=== PATIENT | male | born 1995 ===

== ENCOUNTER 2019-10-26 10:50 | Emergency (ER) | payer SELFPAY ==
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
--- NOTE | 2019-10-26 14:22 | XRay Report ---
HISTORY:swelling and pain to right 2nd 3rd PIP COMPARISON: None. TECHNIQUE: AP lateral and obliques views were obtained FINDINGS: Bones: No fracture or dislocation. Joint spaces: Maintained. Soft tissues: No significant abnormality. Additional findings: None. IMPRESSION: 1. No significant abnormality. Signer Name: Mick Estrada MD Signed: 10/26/2019 2:17 PM Workstation Name: [id number]
[2019-10-26] MEDS ORDERED: SULFAMETHOXAZOLE/TRIMETHOPRIM 800/160MG DS TAB PO ONE (20:13)
[2019-10-26] MEDS ORDERED: LIDOCAINE-MPF (1%) 10 MG/1 ML VIAL 5 ML INFILTRATI ONE (20:13)
[2019-10-26] MEDS ORDERED: IBUPROFEN 600 MG TAB PO ONE (20:13)
[2019-10-26] MEDS ORDERED: ACETAMINOPHEN W/CODEINE 300-30 MG TAB PO ONE (20:13)
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
[2019-10-26 22:01] VITALS: BP 116/80
== END 2019-10-26 22:02 | disposition home or self-care (01) ==
LOC: ED 10:50
DX: S63.92XA Sprain of unspecified part of left wrist and hand, initial encounter (principal); S60.222A Contusion of left hand, initial encounter; S60.00XA Contusion of unspecified finger without damage to nail, initial encounter; L03.114 Cellulitis of left upper limb; L02.512 Cutaneous abscess of left hand; W22.8XXA Striking against or struck by other objects, initial encounter; Y93.89 Activity, other specified; Y92.89 Other specified places as the place of occurrence of the external cause; Y99.8 Other external cause status
CPT/HCPCS: 99283

== ENCOUNTER 2019-10-28 09:24 | Emergency (ER) | payer SELFPAY ==
[2019-10-28 09:34] VITALS: BP 118/78
--- NOTE | 2019-10-28 10:58 | Emergency Department Report ---
ED Recheck HPI - General Chief Complaint: Wound/Laceration Stated Complaint: RT HAND GAUZED REMOVED Time Seen by Provider: 10/28/19 10:23 Source: patient Mode of arrival: Ambulatory Limitations: No Limitations - History of Present Illness Initial Comments: This is a 24-year-old male that presents to the emergency room for packing removal of right posterior hand. Patient states he had an I&D 2 days ago and instructed to follow-up for reevaluation of wound and possible packing removal. He denies new symptoms. Reports minimal drainage. Denies numbness or tingling, fever, weakness, or bruising. MD Complaint: wound re-check Onset/Timin -: days(s) Initial Visit For: abscess Returns Today for: wound recheck Symptoms Since Prior Visit: no new symptoms Associated Symptoms: none - Related Data Previous Rx's Medication Instructions Recorded Last Taken Type Acetaminophen/Codeine [Tylenol 1 tab PO Q6H PRN #12 tab 10/26/19 Unknown Rx /Codeine # 3 tab] Ibuprofen [Motrin] 800 mg PO Q8HR PRN #24 tablet 10/26/19 Unknown Rx Sulfamethoxazole/Trimethoprim 1 each PO Q12H #20 tablet 10/26/19 Unknown Rx [Bactrim DS TAB] Allergies Allergy/AdvReac Type Severity Reaction Status Date / Time No Known Allergies Allergy Unverified 10/26/19 11:20 ED Review of Systems ROS: Stated complaint: RT HAND GAUZED REMOVED Other details as noted in HPI Constitutional: denies: chills, fever Respiratory: denies: cough, shortness of breath, wheezing Cardiovascular: denies: chest pain, palpitations Gastrointestinal: denies: abdominal pain, nausea, diarrhea Skin: lesions (packing removal from wound of right posterior hand). denies: rash Neurological: denies: headache, weakness, paresthesias Psychiatric: denies: anxiety, depression ED Past Medical Hx - Past Medical History Previous Medical History?: No - Surgical History Additional Surgical History: oral surgery - Social History Smoking Status: Never Smoker Substance Use Type: Alcohol, Marijuana - Medications Home Medications: Home Medications Medication Instructions Recorded Confirmed Last Taken Type Acetaminophen/Codeine [Tylenol 1 tab PO Q6H PRN #12 tab 10/26/19 Unknown Rx /Codeine # 3 tab] Ibuprofen [Motrin] 800 mg PO Q8HR PRN #24 tablet 10/26/19 Unknown Rx Sulfamethoxazole/Trimethoprim 1 each PO Q12H #20 tablet 10/26/19 Unknown Rx [Bactrim DS TAB] ED Physical Exam - General Limitations: No Limitations General appearance: alert, in no apparent distress - Respiratory Respiratory exam: Present: normal lung sounds bilaterally. Absent: respiratory distress - Cardiovascular Cardiovascular Exam: Present: regular rate, normal rhythm. Absent: systolic murmur, diastolic murmur, rubs, gallop - Neurological Exam Neurological exam: Present: alert, oriented X3 - Psychiatric Psychiatric exam: Present: normal affect, normal mood - Skin Skin exam: Present: warm, dry, normal color, other (packing into the wound on right dorsal hand with 4 x 4 gauze stressing. No erythema, swelling, no d drainage, or tenderness to palpation). Absent: intact, rash, cyanosis, diaphoretic, erythema, urticaria, vesicles, petechiae, pallor, abrasion, ecchymosis ED Course Vital Signs 10/28/19 10/28/19 09:32 11:19 Temperature 97.3 F L Pulse Rate 120 H 84 Respiratory 20 16 Rate Blood Pressure 118/78 O2 Sat by Pulse 100 Oximetry ED Recheck MDM - Differential Diagnosis Wound Recheck - Medical Decision Making This is a 24 y.o. male that presents to the ER for packing removal. I&D of right dorsal hand 2 days ago. Denies new symptoms. No acute signs of distress noted. Packing removed with sterile forceps, irrigated with 10 mL of normal saline. A nonadherent gauze, 4 x 4 gauze, and surgical tape applied. Patient given wound care instructions. Follow-up with primary care. Discharged home stable. Critical care attestation.: If time is entered above; I have spent that time in minutes in the direct care of this critically ill patient, excluding procedure time. ED Disposition Clinical Impression: Encounter for abscess packing removal Disposition: [id number] TO HOME OR SELFCARE Is pt being admited?: No Condition: Stable Instructions: Acute Wound Care (ED) Additional Instructions: Si le pusieron un vendaje, qutelo y cmbielo jose c vez al da o segn las indicaciones. Si el vendaje se moja o ensucia, reemplcelo lo antes posible con un vendaje nuevo. Use un charisse limpio para secar suavemente la herida. No se jeremiah en jose c baera ni empape la herida hasta que se encuentre con mackenzie mdico de atencin primaria. [place] duchas o baos de esponja en mackenzie lugar. No nades No te rasques, frotes, frotes ni te rasques la herida. Revise mackenzie herida diariamente para detectar signos de infeccin demetrio fiebre, enrojecimiento, hinchazn, aumento del dolor, pus o drenaje de la herida con olor a palmadita. Kathryn un seguimiento con el mdico de atencin primaria de la lista que se proporciona a continuacin. If a bandage was put on, remove and change it once a day or as directed. If the bandage gets wet or dirty, replace it as soon as possible with a new bandage. Use a clean cloth to gently pat the wound dry. Don't bathe in a tub or soak your wound until your primary care doctor. Take showers or sponge baths instead. Don't swim. Don't scratch, rub, scrub, or pick your wound. Check your wound daily for the signs of infection such as fever, redness, swelling, increasing pain, pus or pat smelling drainage from the wound. Follow-up with the primary care doctor from the list provided below. Referrals: [facility] [place] [Outside] - 3-5 Days [facility] [Outside] - 3-5 Days [facility] [Outside] - 3-5 Days Forms: Work/School Release Form(ED) Time of Disposition: 11:10 Print Language: FAROESE
== END 2019-10-28 11:20 | disposition home or self-care (01) ==
LOC: ED 09:24
DX: L02.511 Cutaneous abscess of right hand (principal); F10.10 Alcohol abuse, uncomplicated; F12.10 Cannabis abuse, uncomplicated; Z98.890 Other specified postprocedural states; Z79.899 Other long term (current) drug therapy

== ENCOUNTER 2021-02-15 14:26 | Emergency (ER) | payer SELFPAY ==
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
[2021-02-15 15:37] LABS: Basophils % (Auto) 0.5 % (0.0-1.8); Eosinophils # (Auto) 0.3 K/mm3 (0.0-0.4); Eosinophils % (Auto) 4.4 % (0.0-4.3); Hematocrit 43.4 % (35.5-45.6); Lymphocytes # (Auto) 2.3 K/mm3 (1.2-5.4); Lymphocytes % (Auto) 34.1 % (13.4-35.0); Mean Corpuscular HGB Conc 35 % (32-34); Mean Corpuscular Volume 97 fl (84-94); Monocytes # (Auto) 0.8 K/mm3 (0.0-0.8); Platelet Count 215 K/mm3 (140-440); Red Blood Count 4.46 M/mm3 (3.65-5.03); Red Cell Distribution Width 14.5 % (13.2-15.2)
[2021-02-15 16:07] LABS: Alanine Aminotransferase 22 units/L (7-56); Albumin 4.2 g/dL (3.9-5); BUN/Creatinine Ratio 15; Blood Urea Nitrogen 12 mg/dL (9-20); Calcium 9.4 mg/dL (8.4-10.2); Hemolysis Index 19
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
[2021-02-15] MEDS ORDERED: HYDROcodone/ACETAMINOPHEN 7.5-325MG TAB PO ONE (17:05)
[2021-02-15 17:12] LABS: Bilirubin,Urine NEG (Negative); Blood,Urine NEG (Negative); Color,Urine Yellow (Yellow); Protein,Urine <15 mg/dL mg/dL (Negative); Urobilinogen,Urine < 2.0 mg/dL (<2.0)
[2021-02-15 17:17] LABS: Mucus,Urine FEW /HPF; WBC,Urine < 1.0 /HPF (0.0-6.0)
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
--- NOTE | 2021-02-15 17:58 | XRay Report ---
LEFT HIP 2 VIEWS INDICATION / CLINICAL INFORMATION: left hip pain COMPARISON: None available. FINDINGS: BONES and JOINT(S): No acute fracture or subluxation. No significant arthritis. SOFT TISSUES: No significant abnormality. ADDITIONAL FINDINGS: None. IMPRESSION: 1. No acute findings. Signer Name: Claudio Gibbons MD Signed: 02/15/2021 5:53 PM Workstation Name: [id number]
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
[2021-02-15 21:47] VITALS: BP 129/77
== END 2021-02-15 21:55 | disposition home or self-care (01) ==
LOC: ED 14:26
DX: S42.022A Displaced fracture of shaft of left clavicle, initial encounter for closed fracture (principal); S30.1XXA Contusion of abdominal wall, initial encounter; M25.552 Pain in left hip; F12.90 Cannabis use, unspecified, uncomplicated; Z98.890 Other specified postprocedural states; Z79.899 Other long term (current) drug therapy; V19.9XXA Pedal cyclist (driver) (passenger) injured in unspecified traffic accident, initial encounter; Y92.410 Unspecified street and highway as the place of occurrence of the external cause; Y93.89 Activity, other specified; Y99.8 Other external cause status
CPT/HCPCS: 29105; 36415; 73000; 73030; 73502; 74177; 80053; 81001; 83690; 85025; 99284; Q9967

== ENCOUNTER 2021-05-29 21:42 | Emergency (ER) | payer SELFPAY ==
--- NOTE | 2021-05-29 22:27 | XRay Report ---
CHEST 2 VIEWS INDICATION: chest pain. COMPARISON: None FINDINGS: SUPPORT DEVICES: None. HEART: Within normal limits. LUNGS/PLEURA: No acute air space or interstitial disease. No pneumothorax. ADDITIONAL FINDINGS: None. IMPRESSION: 1. No acute findings. Signer Name: Terrell Knight MD Signed: 05/29/2021 10:23 PM Workstation Name: [id number]
[2021-05-29 23:43] VITALS: BP 131/86
[2021-05-30] LABS: Basophils % (Auto) 0.7 % (0.0-1.8); Eosinophils # (Auto) 0.2 K/mm3 (0.0-0.4); Eosinophils % (Auto) 3.6 % (0.0-4.3); Lymphocytes # (Auto) 2.4 K/mm3 (1.2-5.4); Lymphocytes % (Auto) 38.1 % (13.4-35.0); Mean Corpuscular HGB Conc 35 % (32-34); Mean Corpuscular Volume 96 fl (84-94); Monocytes # (Auto) 0.9 K/mm3 (0.0-0.8); Monocytes % (Auto) 13.8 % (0.0-7.3); Platelet Count 254 K/mm3 (140-440); Red Cell Distribution Width 14.9 % (13.2-15.2)
[2021-05-30 00:14] LABS: Alanine Aminotransferase 29 units/L (7-56); Albumin 5.2 g/dL (3.9-5); Blood Urea Nitrogen 8 mg/dL (9-20); Calcium 10.2 mg/dL (8.4-10.2); Hemolysis Index 8
[2021-05-30 00:16] LABS: BUN/Creatinine Ratio 11
--- NOTE | 2021-05-31 09:14 | Electrocardiograph Report ---
[facility] Test Date: 2021-05-29 Test Time: 21:50:07 Pat Name: NAHEED YEH Department: Room: Gender: M Business Project Manager: JORDAN : 1995 Requested By: JACKELIN DILLON III Order Number: [id number] Reading MD: Vj Spain Measurements Intervals [place] Rate: 119 P: 67 OK: 124 QRS: 93 QRSD: 87 T: 21 QT: 322 QTc: 452 Interpretive Statements Sinus tachycardia No previous ECG available for comparison Electronically Signed On 05-31-2021 9:14:15 EDT by Vj Spain
== END 2021-05-30 03:39 | disposition home or self-care (01) ==
LOC: ED 21:42
DX: F41.9 Anxiety disorder, unspecified (principal); Z53.21 Procedure and treatment not carried out due to patient leaving prior to being seen by health care provider
CPT/HCPCS: 36415; 71046; 80053; 84484; 85025; 93005

== ENCOUNTER 2021-12-30 04:30 | Emergency (ER) | payer SELFPAY ==
[2021-12-30] MEDS ORDERED: LORazepam 2 MG/ML VIAL IM ONE (04:45)
[2021-12-30] MEDS ORDERED: HALOPERIDOL LACTATE 5 MG/1 ML INJ IM ONE (04:45)
[2021-12-30] MEDS ORDERED: LORazepam 2 MG/ML VIAL ONE (04:58)
[2021-12-30] MEDS ORDERED: HALOPERIDOL LACTATE 5 MG/1 ML INJ ONE (04:58)
[2021-12-30] MEDS ORDERED: SODIUM CHLORIDE 0.9% 1000 ML 1,000 ML IV ONE (05:03)
[2021-12-30 05:49] LABS: Basophils % (Auto) 0.6 % (0.0-1.8); Eosinophils # (Auto) 0.1 K/mm3 (0.0-0.4); Eosinophils % (Auto) 1.3 % (0.0-4.3); Hematocrit 44.4 % (35.5-45.6); Hemoglobin 14.8 gm/dl (11.8-15.2); Lymphocytes # (Auto) 1.6 K/mm3 (1.2-5.4); Lymphocytes % (Auto) 20.6 % (13.4-35.0); Mean Corpuscular HGB Conc 33 % (32-34); Mean Corpuscular Volume 95 fl (84-94); Monocytes # (Auto) 0.7 K/mm3 (0.0-0.8); Monocytes % (Auto) 8.6 % (0.0-7.3); Platelet Count 225 K/mm3 (140-440); Red Blood Count 4.68 M/mm3 (3.65-5.03); Red Cell Distribution Width 13.8 % (13.2-15.2)
[2021-12-30 06:13] LABS: Alanine Aminotransferase 40 units/L (7-56); Albumin 4.6 g/dL (3.9-5); BUN/Creatinine Ratio 13; Blood Urea Nitrogen 12 mg/dL (9-20); Calcium 8.8 mg/dL (8.4-10.2); Hemolysis Index 8
--- NOTE | 2021-12-30 06:19 | XRay Report ---
CHEST 1 VIEW 12/30/2021 5:36 AM INDICATION / CLINICAL INFORMATION: Medical Clearance Psych. COMPARISON: 05/29/2021. FINDINGS: SUPPORT DEVICES: None. HEART / MEDIASTINUM: No significant abnormality. LUNGS / PLEURA: No significant pulmonary or pleural abnormality. No pneumothorax. ADDITIONAL FINDINGS: Healed left clavicle fracture. IMPRESSION: No acute abnormality. Signer Name: Patrice Hsieh MD Signed: 12/30/2021 6:14 AM Workstation Name: [id number]
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
[2021-12-30 10:10] VITALS: BP 137/94
== END 2021-12-30 10:09 | disposition home or self-care (01) ==
LOC: ED 04:30
DX: F15.90 Other stimulant use, unspecified, uncomplicated (principal); R51.9 Headache, unspecified; R41.0 Disorientation, unspecified
CPT/HCPCS: 36415; 71045; 80053; 82550; 84484; 85025; 96360; 96372; 99285; J1630; J2060; J7030; 80320; 99284; Q0162; G0480

== ENCOUNTER 2022-01-01 22:21 | Emergency (ER) | payer SELFPAY ==
[2022-01-01] MEDS ORDERED: diphenhydrAMINE 25 MG/10 ML ORAL LIQUID PO ONE (22:43)
[2022-01-01] MEDS ORDERED: LIDOCAINE VISCOUS 2% 15 ML ORAL LIQD MM ONE (22:43)
[2022-01-01] MEDS ORDERED: ALUM-MAG HYDROXIDE-SIMETHICONE 200-200-20MG/5ML ORAL LIQD 30 ML PO STA (22:43)
[2022-01-01 23:40] LABS: Basophils % (Auto) 0.6 % (0.0-1.8); Eosinophils # (Auto) 0.2 K/mm3 (0.0-0.4); Eosinophils % (Auto) 2.6 % (0.0-4.3); Hematocrit 45.8 % (35.5-45.6); Lymphocytes # (Auto) 2.5 K/mm3 (1.2-5.4); Lymphocytes % (Auto) 36.6 % (13.4-35.0); Mean Corpuscular HGB Conc 33 % (32-34); Mean Corpuscular Volume 97 fl (84-94); Monocytes # (Auto) 0.7 K/mm3 (0.0-0.8); Monocytes % (Auto) 10.3 % (0.0-7.3); Platelet Count 227 K/mm3 (140-440); Red Blood Count 4.71 M/mm3 (3.65-5.03)
[2022-01-01 23:45] VITALS: BP 131/67
--- NOTE | 2022-01-01 23:45 | XRay Report ---
CHEST 2 VIEWS INDICATION: Chest Pain. COMPARISON: 12/30/2021 FINDINGS: Support devices: None. Heart: Within normal limits. Lungs/Pleura: No acute air space or interstitial disease. No significant pleural effusion. Old left seventh rib fracture. IMPRESSION: No acute findings. Signer Name: Patrice Hsieh MD Signed: 01/01/2022 11:41 PM Workstation Name: [id number]
[2022-01-01 23:53] LABS: Alanine Aminotransferase 44 units/L (7-56); Albumin 4.6 g/dL (3.9-5); BUN/Creatinine Ratio 11; Blood Urea Nitrogen 9 mg/dL (9-20); Calcium 9.2 mg/dL (8.4-10.2); Hemolysis Index 29
--- NOTE | 2022-01-03 19:11 | Electrocardiograph Report ---
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 LVH. ST elev, probable normal early repol pattern Compared to ECG 05/29/2021 21:50:07 ST (T wave) deviation now present Sinus tachycardia no longer present Electronically Signed On 01-03-2022 19:11:40 EDT by Ronni Ballard
== END 2022-01-02 01:30 | disposition left against medical advice (07) ==
LOC: ED 22:21
DX: R06.02 Shortness of breath (principal); Z53.21 Procedure and treatment not carried out due to patient leaving prior to being seen by health care provider
CPT/HCPCS: 36415; 71046; 80053; 83690; 84484; 85025; 93005

== ENCOUNTER 2022-01-02 03:46 | Emergency (ER) | payer SELFPAY ==
[2022-01-02 03:55] VITALS: BP 99/66
--- NOTE | 2022-01-02 05:59 | Event Note ---
ED Screening Note ED Screening Note: 26-year-old male presents emerged from complaining of chest pain which he thinks may be related to diet, stress or or other issues. Not indicated for work-up as the patient has came and left the emergency department multiple times over the past day and a half tonight to stay for the necessary evaluation This initial assessment/diagnostic orders/clinical plan/treatment(s) is/are subject to change based on patients health status, clinical progression and re- assessment by fellow clinical providers in the ED. Further treatment and workup at subsequent clinical providers discretion. Patient/guardian urged not to elope from the ED as their condition may be serious if not clinically assessed and managed. Initial orders include:
[2022-01-02] MEDS ORDERED: LORazepam 1 MG TAB PO ONE (06:52)
--- NOTE | 2022-01-02 06:53 | Emergency Department Report ---
ED General Adult HPI - General Chief complaint: Chest Pain Stated complaint: PAYTON Time Seen by Provider: 01/02/22 06:33 Source: patient Mode of arrival: Ambulatory Limitations: No Limitations - History of Present Illness Initial comments: This is a 26-year-old male presents the emergency department with a chief complaint of shortness of breath, difficulty sleeping. Patient reports he had been eating heavily using crystal meth recently with his last use was 5 days ago. He came to the ER Thursday which is 4 days ago combative and agitated was given medication in the ER that helped him sleep. He presented emerged department last night with similar symptoms and then left and returned today stating he is requesting another dose of that medication that helped him. He denies any suicidal thoughts, homicidal thoughts, auditory visual hallucinations, fever, chills, night sweats, chest pain, shortness of breath currently, weakness or any other associated symptoms. - Related Data Previous Rx's Medication Instructions Recorded Last Taken Type Acetaminophen/Codeine [Tylenol 1 tab PO Q6H PRN #12 tab 10/26/19 Unknown Rx /Codeine # 3 tab] Ibuprofen [Motrin] 800 mg PO Q8HR PRN #24 tablet 10/26/19 Unknown Rx Sulfamethoxazole/Trimethoprim 1 each PO Q12H #20 tablet 10/26/19 Unknown Rx [Bactrim DS TAB] HYDROcodone/APAP 7.5-325 [[place] 1 each PO Q8HR PRN #12 tablet 02/15/21 Unknown Rx 7.5/325] hydrOXYzine PAMOATE [Vistaril] 25 mg PO Q6HR PRN #12 capsule 01/02/22 Unknown Rx Allergies Allergy/AdvReac Type Severity Reaction Status Date / Time No Known Allergies Allergy Verified 12/30/21 05:00 ED Review of Systems ROS: Stated complaint: PAYTON Other details as noted in HPI Comment: All other systems reviewed and negative Constitutional: denies: chills, fever Eyes: denies: eye pain, eye discharge, vision change ENT: denies: ear pain, throat pain Respiratory: shortness of breath. denies: cough, wheezing Cardiovascular: denies: chest pain, palpitations Endocrine: no symptoms reported Gastrointestinal: denies: abdominal pain, nausea, diarrhea Genitourinary: denies: urgency, dysuria Musculoskeletal: denies: back pain, joint swelling, arthralgia Skin: denies: rash, lesions Neurological: denies: headache, weakness, paresthesias Psychiatric: denies: anxiety, depression Hematological/Lymphatic: denies: easy bleeding, easy bruising ED Past Medical Hx - Past Medical History Hx Hypertension: No - Surgical History Additional Surgical History: oral surgery - Social History Smoking Status: Never Smoker Substance Use Type: Alcohol, Marijuana - Medications Home Medications: Home Medications Medication Instructions Recorded Confirmed Last Taken Type Acetaminophen/Codeine [Tylenol 1 tab PO Q6H PRN #12 tab 10/26/19 Unknown Rx /Codeine # 3 tab] Ibuprofen [Motrin] 800 mg PO Q8HR PRN #24 tablet 10/26/19 Unknown Rx Sulfamethoxazole/Trimethoprim 1 each PO Q12H #20 tablet 10/26/19 Unknown Rx [Bactrim DS TAB] HYDROcodone/APAP 7.5-325 [[place] 1 each PO Q8HR PRN #12 tablet 02/15/21 Unknown Rx 7.5/325] hydrOXYzine PAMOATE [Vistaril] 25 mg PO Q6HR PRN #12 capsule 01/02/22 Unknown Rx ED Physical Exam - General Limitations: No Limitations General appearance: alert, in no apparent distress - Head Head exam: Present: atraumatic, normocephalic - Eye Eye exam: Present: normal appearance, PERRL, EOMI Pupils: Present: normal accommodation - ENT ENT exam: Present: normal exam, normal orophraynx, mucous membranes moist - Neck Neck exam: Present: normal inspection, full ROM. Absent: tenderness, meningismus - Respiratory Respiratory exam: Present: normal lung sounds bilaterally. Absent: respiratory distress - Cardiovascular Cardiovascular Exam: Present: regular rate, normal rhythm. Absent: systolic murmur, diastolic murmur, rubs, gallop - GI/Abdominal GI/Abdominal exam: Present: soft, normal bowel sounds. Absent: distended, tenderness, guarding, rebound, rigid - Rectal Rectal exam: Present: deferred - Extremities Exam Extremities exam: Present: normal inspection, full ROM, normal capillary refill. Absent: tenderness, calf tenderness - Back Exam Back exam: Present: normal inspection, full ROM. Absent: tenderness, CVA tenderness (R), CVA tenderness (L) - Neurological Exam Neurological exam: Present: alert, oriented X3, normal gait - Psychiatric Psychiatric exam: Present: normal affect, normal mood - Skin Skin exam: Present: warm, dry, intact, normal color. Absent: rash ED Course Vital Signs 01/02/22 03:53 Temperature 98.1 F Pulse Rate 88 Respiratory 18 Rate Blood Pressure 99/66 O2 Sat by Pulse 96 Oximetry ED Medical Decision Making - Medical Decision Making Patient is well-appearing, nontoxic in no acute distress. His vital signs are normal. He is PERC negative and low risk by Wells criteria. Patient recently binged on methamphetamines and has been to the ER now 3 times for similar symptoms. I will give him a dose of p.o. Ativan. He does have a ride home. Recommended he follow-up with primary care doctor return to the ER with any change or worsening symptoms. We will send him home with p.o. Vistaril recomme nded he avoid any stimulants specifically methamphetamines. He verbalized understanding the diagnosis, treatment plan and follow-up instructions all his questions were answered. - Differential Diagnosis Methamphetamine use, anxiety, pneumonia Critical care attestation.: If time is entered above; I have spent that time in minutes in the direct care of this critically ill patient, excluding procedure time. ED Disposition Clinical Impression: Methamphetamine use Disposition: 01 HOME / SELF CARE / HOMELESS Is pt being admited?: No Condition: Stable Instructions: Methamphetamines Use Disorder Prescriptions: hydrOXYzine PAMOATE [Vistaril] 25 mg PO Q6HR PRN #12 capsule PRN Reason: Anxiety Referrals: [facility] [Provider Group] - 3-5 Days [facility] [Outside] - 3-5 Days [facility] [Outside] - 3-5 Days Forms: Work/School Release Form(ED) Time of Disposition: 06:52
== END 2022-01-02 06:58 | disposition home or self-care (01) ==
LOC: ED 03:46
DX: F15.20 Other stimulant dependence, uncomplicated (principal); F10.20 Alcohol dependence, uncomplicated; F12.90 Cannabis use, unspecified, uncomplicated
CPT/HCPCS: 99282